=== PATIENT | male | born 1985 | race Hispanic/Latino ===

== ENCOUNTER 2018-11-02 23:25 | Emergency (ER) | payer SELFPAY ==
[2018-11-02 23:50] LABS: #Basophils 0.1 thou/uL (0.0-0.2); #Eosinphils 0.2 thou/uL (0.0-0.7); #Lymphocytes 3.5 thou/uL (1.20-3.40); #Monocytes 0.9 thou/uL (0.11-0.59); #Neutrophils 4.6 thou/uL (1.40-6.50); %Eosinophils 2.3 % (0.0-10.0); %Lymphocytes 37.7 % (21.0-51.0); %Monocytes 9.5 % (0.0-10.0); %Neutrophils 49.5 % (42.0-75.0); Hemoglobin 16.1 g/dL (14.0-18.0); Mean Corpuscular HGB CONC 35.4 g/dL (32.0-36.0); Mean Corpuscular Hemoglobin 32.3 pg (27.0-31.0); Mean Corpuscular Volume 91.1 fL (78.0-98.0); Mean Platelet Volume 7.6 fL (7.4-10.4); Platelet Count 293 thou/uL (130-400); RBC Distribution Width 11.8 % (11.5-14.5); White Blood Cell (WBC) Count 9.4 thou/uL (4.8-10.8)
[2018-11-03 00:12] LABS: ALT (SGPT) 41 U/L (8-55); AST (SGOT) 18 U/L (5-34); Albumin 4.8 g/dL (3.5-5.0); Alkaline Phosphatase 75 U/L (40-150); Anion Gap 12 mmol/L (10-20); BUN (Urea Nitrogen) 14 mg/dL (8.9-20.6); Bilirubin, Total 0.7 mg/dL (0.2-1.2); Calc. Creatinine Clearance 0 mL/min (70-130); Calcium 9.4 mg/dL (7.8-10.44); Carbon Dioxide 23 mmol/L (22-29); Chloride 106 mmol/L (98-107); Estimated GFR-MDRD 87; Globulin 2.7 g/dL (2.4-3.5); Glucose 108 mg/dL (70-105); Lipase 31 U/L (8-78); Potassium 3.4 mmol/L (3.5-5.1); Protein, Total 7.5 g/dL (6.0-8.3); Sodium 138 mmol/L (136-145)
[2018-11-03] MEDS ORDERED: Ondansetron PF 4 MG/2 ML Vial ONE (00:20)
[2018-11-03] MEDS ORDERED: Ketorolac Tromethamine 30 MG/ML VIAL ONE (00:20)
[2018-11-03 01:38] LABS: Bacteria/HPF None Seen HPF (None Seen); Bilirubin Negative (Negative); Blood, Urine 3+ (Negative); Calcium Oxalate Crystals 1+ HPF (None Seen); Clarity Extra Turbid (Clear); Glucose, Urine (Dipstick) Normal (Negative); Leukocyte Negative Leu/uL (Negative); Mucous/LPF 2+ LPF (<2+); Nitrite Negative (Negative); Protein, Urine (Dipstick) 20 mg/dL (Neg-Trace); RBC/HPF 21-50 HPF (0-3); Squamous Epithelial None Seen HPF (0-3); Urobilinogen Normal mg/dL (Less than 2); WBC/HPF None Seen HPF (0-3)
[2018-11-03] MEDS ORDERED: HYDROcodone/Acetaminophen 5/325 mg Tablet ONE (01:59)
--- NOTE | 2018-11-03 07:45 | CT ---
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 PT is C/O nausea and dysuria. PT denies vd, denies blood in urine TECHNIQUE: Imaging protocol: Computed tomography of the abdomen and pelvis without contrast. COMPARISON: No relevant prior studies available. FINDINGS: Lungs: No consolidations in the lung bases. Liver: Diffuse low density of the liver at least 10 Hounsfield units less than that of the spleen suggesting hepatic steatosis. Focal fatty sparing around the gallbladder fossa. Gallbladder and bile ducts: Normal appearance of the gallbladder. No ductal dilation. Pancreas: No pancreatic mass or ductal dilation. Spleen: No splenic masses. Adrenals: No adrenal nodules. Kidneys and ureters: There is a 4 x 2 mm stone in the right ureterovesicular junction resulting in mild hydroureteronephrosis. Normal appearance of the left kidney. Stomach and bowel: No evidence of obstruction or bowel wall thickening. Appendix: Normal appendix. Intraperitoneal space: No free air or free fluid. Vasculature: No abdominal aortic aneurysm. Lymph nodes: No lymphadenopathy. Bladder: The bladder is decompressed. Reproductive: Normal appearance of the prostate and seminal vesicles. Bones/joints: No suspicious bone lesions. Soft tissues: No acute findings. IMPRESSION: There is a 4 x 2 mm stone in the right ureterovesicular junction resulting in mild hydroureteronephrosis. Thank you for allowing us to participate in the care of your patient. Dictated and Authenticated by: Giuliana Ibarra MD 11/03/2018 1:08 AM Central Time ([place] & [place]) FINAL REPORT EMERGENCY AFTER HOURS NONCONTRAST CT ABDOMEN AND PELVIS: HISTORY: Right flank pain with nausea and dysuria. IMPRESSION: 1. Partially obstructing right UVJ calculus measuring approximately 4 mm with resultant mild right hy dronephrosis and hydroureter. 2. No left renal or ureteral calculus is seen. 3. No CT evidence of appendicitis. 4. Fatty infiltration of the liver. 5. Findings are agreement with the preliminary report by the Code QA Transcribed Date/Time: 11/03/2018 8:20 AM
== END 2018-11-03 02:35 | disposition home or self-care (01) ==
LOC: ERS 23:25
DX: N13.2 Hydronephrosis with renal and ureteral calculous obstruction (principal)
CPT/HCPCS: 36415; 74176; 80053; 81003; 81015; 83690; 85025; 87086; 96361; 96374; 96375; J1885; J2405

== ENCOUNTER 2019-11-19 20:28 | Emergency (ER) | payer SELFPAY ==
[2019-11-19] MEDS ORDERED: Acetaminophen 500 MG TAB ONE (21:14)
== END 2019-11-19 22:19 | disposition home or self-care (01) ==
LOC: ERS 20:28
DX: H66.43 Suppurative otitis media, unspecified, bilateral (principal)
CPT/HCPCS: 99283

== ENCOUNTER 2022-07-07 20:49 | Emergency (ER) | payer SELFPAY ==
[2022-07-08] MEDS ORDERED: Fluorescein Opthalmic Strip ONE (00:51)
[2022-07-08] MEDS ORDERED: Proparacaine 0.5% Opth 15 ML BOT ONE (00:51)
== END 2022-07-08 01:15 | disposition home or self-care (01) ==
LOC: ERS 20:49
DX: H10.9 Unspecified conjunctivitis (principal)
CPT/HCPCS: 99282